=== PATIENT | male | born 1950 | race Caucasian/White ===

== ENCOUNTER 2022-09-14 00:36 | Inpatient (IN) | payer MEDICARE, OTHER ==
[~2022-09-14] VITALS: Ht 177.8 cm; Wt 80.4 kg
[2022-09-14] MEDS ORDERED: ASPIRIN 81 MG CHEWABLE TABLET PO ONE (00:45)
[2022-09-14] MEDS ORDERED: ENOXAPARIN 100 MG/1 ML (LOVENOX) SYR SC ONE (00:45)
[2022-09-14] MEDS ORDERED: dilTIAZem DRIP PRE-MIX 125 ML IV SCH (00:45)
[2022-09-14] MEDS ORDERED: NS IV 1000 ML 1,000 ML ONE ×2 (00:51→13:33)
[2022-09-14 00:53] LABS: BASOPHILS % (AUTO) 0 % (0-10); EOSINOPHILS % (AUTO) 0 % (0-10); HEMATOCRIT 49 % (40-54); HEMOGLOBIN 17.2 g/dL (13.3-17.7); LYMPHOCYTES # (AUTO) 1.6 10^3/uL (1.0-4.0); LYMPHOCYTES % (AUTO) 12 % (12-44); MEAN CORPUSCULAR HEMOGLOBIN 34 pg (25-34); MEAN CORPUSCULAR HGB CONC 35 g/dL (32-36); MEAN CORPUSCULAR VOLUME 95 fL (80-99); MEAN PLATELET VOLUME 10.2 fL (9.0-12.2); MONOCYTES # (AUTO) 1.7 10^3/uL (0.0-1.0); MONOCYTES % (AUTO) 13 % (0-12); NEUTROPHILS # (AUTO) 9.8 10^3/uL (1.8-7.8); NEUTROPHILS % (AUTO) 74 % (42-75); PLATELET COUNT 263 10^3/uL (130-400); WHITE BLOOD COUNT 13.2 10^3/uL (4.3-11.0)
[2022-09-14] MEDS ORDERED: NS IV 1000 ML 1,000 ML IV SCH ×2 (01:00→16:00)
[2022-09-14 01:03] LABS: ALBUMIN 4.3 GM/DL (3.2-4.5); CHLORIDE 89 MMOL/L (98-107); POTASSIUM 4.2 MMOL/L (3.6-5.0)
[2022-09-14 01:04] LABS: AMYLASE 36 U/L (25-125); CALCIUM 9.5 MG/DL (8.5-10.1)
[2022-09-14 01:05] LABS: GLUCOSE 122 MG/DL (70-105); INR 1.5 (0.8-1.4); PROTHROMBIN TIME PATIENT 18.5 SEC (12.2-14.7); TOTAL PROTEIN 7.5 GM/DL (6.4-8.2)
[2022-09-14 01:06] LABS: CARBON DIOXIDE 18 MMOL/L (21-32)
[2022-09-14 01:07] LABS: BILIRUBIN,TOTAL 4.5 MG/DL (0.1-1.0)
[2022-09-14 01:09] LABS: ALKALINE PHOSPHATASE 69 U/L (40-136); CREATININE SERUM 0.98 MG/DL (0.60-1.30); GFR ESTIMATED 82
[2022-09-14 01:10] LABS: BUN/CREATININE RATIO 23
[2022-09-14 01:11] LABS: MAGNESIUM 2.1 MG/DL (1.6-2.4)
[2022-09-14 01:12] LABS: ALANINE AMINOTRANSFERASE 41 U/L (0-55)
[2022-09-14 01:13] LABS: ACETAMINOPHEN < 10 UG/ML (10-30)
[2022-09-14 01:13] LABS: CREATINE KINASE 95 U/L (30-200); LIPASE 27 U/L (8-78)
[2022-09-14 01:14] LABS: AMMONIA 37 UMOL/L (11-32)
[2022-09-14 01:17] LABS: SODIUM 122 MMOL/L (135-145)
[2022-09-14] MEDS ORDERED: FUROSEMIDE 40 MG/4 ML INJ (LASIX) IVP ONE (01:30)
[2022-09-14 01:54] LABS: TSH (THYROID ANALYZER) 2.09 UIU/ML (0.35-4.94)
[2022-09-14 02:25] LABS: CLARITY,URINE CLEAR; COLOR,URINE ORANGE; GLUCOSE, URINE (UA) TRACE (NEGATIVE); KETONES,URINE TRACE (NEGATIVE); LEUKOCYTE ESTERASE ,URINE NEGATIVE (NEGATIVE); NITRITE,URINE NEGATIVE (NEGATIVE); PROTEIN,URINE 2+ (NEGATIVE)
--- NOTE | 2022-09-14 02:27 | ED Cardiac General ---
History of Present Illness General Chief Complaint: Respiratory Problems Stated Complaint: SOA/SWOLLEN ANKLES Nursing Triage Note: PATIENT REPORTS HE IS SOB, STATES X1 WEEK, HX OF AFIB, NONCOMPLIANT WITH MEDICATION. STATES IS SUPPOSE TO TAKE A HTN MED AND HASNT SINCE COVID. PATIENT STATES SWELLING ALAN LEGS ON GOING FOR ONE MONTH. Source: patient History of Present Illness Date Seen by Provider: Sep 14, 2022 Time Seen by Provider: 00:40 Initial Comments PT ARRIVES VIA POV FROM HOME WITH PT C/O SHORTNESS OF BREATH "FOR AWHILE" WORSE X 1 WEEK PT HAS HISTORY OF ATRIAL FIBRILLATION AND HTN, AND IS SUPPOSED TO BE ON UNKNOWN MEDICATIONS. HE HAS NOT BEEN TAKING ANY OF HIS MEDICATIONS FOR A LONG TIME. HE HAS NOT SEEN A DR IN OVER 3 YEARS. HE STATES HE HAD SEEN DR. ESTES AT [facility] IN [place] ( ATOMIC WELDER) IN THE PAST, BUT SINCE COVID PANDEMIC STARTED OVER 3 YEARS AGO, HE QUIT GOING. HE DOES NOT SEE ANY ONE ON REGULAR BASIS FOR PRIMARY CARE EITHER--"JUST GOES TO [facility]-WALK IN WHEN HE NEEDS TO" BUT HAS NOT BEEN THERE IN YEARS EITHER. HE HAS HAD INCREASED SWELLING IN BOTH LEGS FOR AT LEAST A MONTH. NO CHEST PAIN HAD SWEATS "A COUPLE OF TIMES" WHILE AT REST NO DIZZINESS OR SYNCOPE NO NAUSEA/VOMITING PT IS UNAWARE OF RAPID HEART BEAT OTHER THAN "FEELING NERVOUS" SYMPTOMS ARE NO DIFFERENT ARMINDA HAS NOT SOUGHT CARE UNTIL TONIGHT YEARS AGO, HE HAD A CARDIOVERSION AT [facility] BUT PT STATES IT DID NOT WORK AND HE WAS PUT ON MEDICATIONS FOR THE ATRIAL FIBRILLATION. HE ALSO RELATES HE HAD A CARDIAC CATH SEVERAL YEARS AGO AND WAS TOLD HE HAD "BLOCKAGE" BUT NO INTERVENTION, AND WAS TREATED WITH BLOOD THINNERS. HE STATES HE HAS NEVER HAD A HEART ATTACK. HE DENIES ANY LUNG PROBLEMS HE DENIES ANY LIVER, PANCREATIC OR GI PROBLEMS. PT DRINKS AT LEAST 6 BEERS A DAY, BUT HAS NOT HAD THAT MUCH TODAY HE SMOKES < 1 PPD HE DENIES DRUG USE PCP: [facility] [place] ATOMIC WELDER: DR. ESTES AT [facility] Allergies and Home Medications Allergies Coded Allergies: No Known Drug Allergies (Unverified , 09/14/22) Patient Home Medication List Home Medication List Reviewed: Yes Acetaminophen (Tylenol Extra Strength) 500 Mg Tablet, 1,000 MG PO Q8H PRN for PAIN-MILD (1-4), (Reported) Entered as Reported by: RAJ MADRID on 09/14/22 1147 Last Action: Reviewed Review of Systems Review of Systems Constitutional: no symptoms reported; No chills, No diaphoresis, No dizziness, No fever, No malaise, No weakness EENTM: No Symptoms Reported Respiratory: See HPI, Shortness of Air Cardiovascular: See HPI; Denies Chest Pain; Edema, Irregular Heart Rate; Denies Lightheadedness; Palpitations; Denies Syncope Gastrointestinal: No Symptoms Reported; Denies Abdominal Pain, Denies Nausea, Denies Vomiting Genitourinary: No Symptoms Reported Musculoskeletal: see HPI (LEG SWELLING) Skin: no symptoms reported Psychiatric/Neurological: Anxiety; Denies Headache, Denies Numbness, Denies Paresthesia, Denies Tingling, Denies Tremors, Denies Weakness Endocrine: No Symptoms Reported Hematologic/Lymphatic: No Symptoms Reported; Denies Anemia, Denies Blood Clots, Denies Easy Bleeding, Denies Easy Bruising Past [id number]-[id number] Hx Patient Social History Tobacco Use?: Yes Tobacco type used: Cigarettes Smoking Status: Current Everyday Smoker Substance use?: No Alcohol Use?: Yes Alcohol type: Beer Alcohol Frequency: Daily Past Medical History Surgery/Hospitalization HX: HTN, AFIB, Surgeries: Yes Cardiac Respiratory: No Cardiac: Yes Atrial Fibrillation, Hypertension Neurological: No Genitourinary: No Gastrointestinal: Yes (EGD WITH REMOVAL OF FOOD BOLUS AND ESOPHAGEAL DILATION ) Musculoskeletal: No Endocrine: No HEENT: No Cancer: No Psychosocial: No Integumentary: No Blood Disorders: No Family Medical History SOCIAL HISTORY: -SMOKES < 1 PPD' -ETOH--DRINKS AT LEAST A 6 PACK/DAY -DENIES DRUG USE PAST SURGICAL/PROCEDURAL HISTORY: -CARDIOVERSION ATTEMPT / UNSUCCESSFUL SEVERAL YEARS AGO -CARDIAC CATH--NO INTERVENTION. PT STATES HE HAD "BLOCKAGES" BUT TREATED WITH BLOOD THINNERS -EGD WITH REMOVAL OF FOOD BOLUS AND ESOPHAGEAL DILATION. Physical Exam Vital Signs Vital Signs - First Documented 09/14/22 09/14/22 00:47 00:56 Temp 36.0 Pulse 144 Resp 20 B/P (MAP) 167/121 (136) Pulse Ox 98 O2 Delivery Room Air O2 Flow Rate 2.00 Capillary Refill : Less Than 3 Seconds Height, Weight, BMI Height: '" Weight: lbs. oz. kg; 25.00 BMI Method: General Appearance: WD/WN, Mild Distress (MILDLY DYSPNEIC AT REST) HEENT: PERRL/EOMI, Scleral Icterus (L), Scleral Icterus (R) Neck: Normal Inspection, JVD Respiratory: Other (MILD DYSPNEA AT REST. DECREASED AERATION IN BASES. ) Cardiovascular: No Murmur, Normal Peripheral Pulses, Irregularly Irregular, JVD, Tachycardia Gastrointestinal: Non Tender, Soft Extremity: Pedal Edema (3+ EDEMA BILATERALLY WITH CHRONIC VENOUS STASIS CHANGES BILATERALLY. NO CALF TENDERNESS. PULSES +2/4 BILATERALLY. FEET PINK AND WARM ) Neurologic/Psychiatric: Alert, Oriented x3, No Motor/Sensory Deficits, porcelain enamel sprayer II- XII Norm as Tested, Other (SOMEWHAT FLAT AFFECT AND SLIGHTLY SLOW MENTATION) Skin: Warm/Dry; No Diaphoresis, No Ecchymosis; Jaundice; No Petechia, No Rash Focused Exam Lactate Level 09/14/22 00:48: Lactic Acid Level 2.82*H 09/14/22 04:00: Lactic Acid Level 1.04 Lactic Acid Level Laboratory Tests Test 09/14/22 00:48 09/14/22 04:00 Lactic Acid Level 2.82 MMOL/L (0.50-2.00) *H 1.04 MMOL/L (0.50-2.00) Progress/Results/Core Measures Results/Orders Lab Results Laboratory Tests Test 09/14/22 00:45 09/14/22 00:48 09/14/22 02:20 09/14/22 04:00 Range/Units White Blood Count 13.2 H 4.3-11.0 10^3/uL Red Blood Count 5.11 4.30-5.52 10^6/uL Hemoglobin 17.2 13.3-17.7 g/dL Hematocrit 49 40-54 % Mean Corpuscular Volume 95 80-99 fL Mean Corpuscular Hemoglobin 34 25-34 pg Mean Corpuscular Hemoglobin Concent 35 32-36 g/dL Red Cell Distribution Width 13.0 10.0-14.5 % Platelet Count 263 130-400 10^3/uL Mean Platelet Volume 10.2 9.0-12.2 fL Immature Granulocyte % (Auto) 1 % Neutrophils (%) (Auto) 74 42-75 % Lymphocytes (%) (Auto) 12 12-44 % Monocytes (%) (Auto) 13 H 0-12 % Eosinophils (%) (Auto) 0 0-10 % Basophils (%) (Auto) 0 0-10 % Neutrophils # (Auto) 9.8 H 1.8-7.8 10^3/uL Lymphocytes # (Auto) 1.6 1.0-4.0 10^3/uL Monocytes # (Auto) 1.7 H 0.0-1.0 10^3/uL Eosinophils # (Auto) 0.0 0.0-0.3 10^3/uL Basophils # (Auto) 0.0 0.0-0.1 10^3/uL Immature Granulocyte # (Auto) 0.1 0.0-0.1 10^3/uL Prothrombin Time 18.5 H 12.2-14.7 SEC INR Comment 1.5 H 0.8-1.4 Activated Partial Thromboplast Time 48 H 24-35 SEC Sodium Level 122 *L 135-145 MMOL/L Potassium Level 4.2 3.6-5.0 MMOL/L Chloride Level 89 L 98-107 MMOL/L Carbon Dioxide Level 18 L 21-32 MMOL/L Anion Gap 15 H 5-14 MMOL/L Blood Urea Nitrogen 23 H 7-18 MG/DL Creatinine 0.98 0.60-1.30 MG/DL Estimat Glomerular Filtration Rate 82 BUN/Creatinine Ratio 23 Glucose Level 122 H 70-105 MG/DL Calcium Level 9.5 8.5-10.1 MG/DL Corrected Calcium 9.3 8.5-10.1 MG/DL Magnesium Level 2.1 1.6-2.4 MG/DL Total Bilirubin 4.5 H 0.1-1.0 MG/DL Aspartate Amino Transf (AST/SGOT) 49 H 5-34 U/L Alanine Aminotransferase (ALT/SGPT) 41 0-55 U/L Alkaline Phosphatase 69 40-136 U/L Total Creatine Kinase 95 30-200 U/L Creatine Kinase MB 7.0 *H <6.6 NG/ML Myoglobin 130.6 H 10.0-92.0 NG/ML Troponin I < 0.028 <0.028 NG/ML B-Type Natriuretic Peptide 1877.9 H <100.0 PG/ML Total Protein 7.5 6.4-8.2 GM/DL Albumin 4.3 3.2-4.5 GM/DL Amylase Level 36 25-125 U/L Lipase 27 8-78 U/L TSH Barton Testing 2.09 0.35-4.94 UIU/ML Serum Alcohol < 10 <10 MG/DL Hepatitis A IgM Antibody Non-Reactive Non-Reactive Hepatitis B Surface Antigen Non-Reactive Non-Reactive Hepatitis B Core IgM Antibody Non-Reactive Non-Reactive Hepatitis C Antibody Non-Reactive Non-Reactive Influenza Type A (RT-PCR) Not Detected Not Detecte Influenza Type B (RT-PCR) Not Detected Not Detecte SARS-CoV-2 RNA (RT-PCR) Not Detected Not Detecte Lactic Acid Level 2.82 *H 1.04 0.50-2.00 MMOL/L Ammonia 37 H 11-32 UMOL/L Acetaminophen Level < 10 L 10-30 UG/ML Urine Color ORANGE Urine Clarity CLEAR Urine pH 6.0 5-9 Urine Specific Sutton >=1.030 1.016-1.022 Urine Protein 2+ H NEGATIVE Urine Glucose (UA) TRACE H NEGATIVE Urine Ketones TRACE H NEGATIVE Urine Nitrite NEGATIVE NEGATIVE Urine Bilirubin 1+ H NEGATIVE Urine Urobilinogen 1.0 < = 1.0 MG/DL Urine Leukocyte Esterase NEGATIVE NEGATIVE Urine RBC (Auto) NEGATIVE NEGATIVE Urine RBC RARE /HPF Urine WBC 0-2 /HPF Urine Squamous Epithelial Cells 0-2 /HPF Urine Crystals PRESENT H /LPF Urine Amorphous Sediment FEW CHACHO URATES H /LPF Urine Bacteria TRACE /HPF Urine Casts PRESENT /LPF Urine Hyaline Casts 5-10 H /LPF Urine Mucus SMALL H /LPF Urine Culture Indicated NO Urine Opiates Screen NEGATIVE NEGATIVE Urine Oxycodone Screen NEGATIVE NEGATIVE Urine Methadone Screen NEGATIVE NEGATIVE Urine Propoxyphene Screen NEGATIVE NEGATIVE Urine Barbiturates Screen NEGATIVE NEGATIVE Ur Tricyclic Antidepressants Screen NEGATIVE NEGATIVE Urine Phencyclidine Screen NEGATIVE NEGATIVE Urine Amphetamines Screen NEGATIVE NEGATIVE Urine Methamphetamines Screen NEGATIVE NEGATIVE Urine Benzodiazepines Screen POSITIVE H NEGATIVE Urine Cocaine Screen NEGATIVE NEGATIVE Urine Cannabinoids Screen NEGATIVE NEGATIVE My Orders Orders - LAUREANO FRANKLIN DO Ed Iv/Invasive Line Start (09/14/22 00:40) Ekg Tracing (09/14/22 00:40) O2 (09/14/22 00:40) Monitor-Rhythm Ecg Trace Only (09/14/22 00:40) Bnp Sandoval (09/14/22 00:40) Cbc With Automated Diff (09/14/22 00:40) Comprehensive Metabolic Panel (09/14/22 00:40) Creatine Kinase (09/14/22 00:40) Creatine Kinase Mb (09/14/22 00:40) Magnesium (09/14/22 00:40) Protime With Inr (09/14/22 00:40) Partial Thromboplastin Time (09/14/22 00:40) Ua Culture If Indicated (09/14/22 00:40) Myoglobin Serum (09/14/22 00:40) Troponin I Sandoval (09/14/22 00:40) Chest 1 View, Ap/Pa Only (09/14/22 00:40) Covid 19 Inhouse Test (09/14/22 00:40) Influenza A And B By Pcr (09/14/22 00:40) Aspirin Chewable Tablet (Baby Aspirin Ch (09/14/22 00:45) Enoxaparin Injection (Lovenox Injection) (09/14/22 00:45) Diltiazem Injection (Cardizem Injection) (09/14/22 00:45) Diltiazem Drip Pre-Mix (Cardizem Drip Pr (09/14/22 00:45) Alcohol (09/14/22 00:42) Amylase (09/14/22 00:42) Drug Screen Stat (Urine) (09/14/22 00:42) Lipase (09/14/22 00:42) Thyroid Analyzer (09/14/22 00:42) Acetaminophen (09/14/22 00:51) Ammonia (09/14/22 00:51) Hepatitis Panel Acute (09/14/22 00:51) Lactic Acid Analyzer (09/14/22 00:51) Ed Iv/Invasive Line Start (09/14/22 00:51) Ns Iv 1000 Ml (Sodium Chloride 0.9%) (09/14/22 01:00) Ns Iv 1000 Ml (Sodium Chloride 0.9%) (09/14/22 00:51) Ekg Tracing (09/14/22 00:58) Furosemide Injection (Lasix Injection) (09/14/22 01:30) Medications Given in ED Vital Signs/I&O 09/14/22 09/14/22 09/14/22 09/14/22 00:47 00:51 00:52 00:56 Temp 36.0 Pulse 144 148 150 Resp 20 B/P (MAP) 167/121 (136) 177/121 Pulse Ox 98 97 O2 Delivery Room Air Nasal Cannula O2 Flow Rate 2.00 09/14/22 07:01 Pulse 90 Resp 16 B/P (MAP) 135/94 (108) Pulse Ox 94 O2 Delivery Nasal Cannula O2 Flow Rate 2.00 Blood Pressure Mean: 139 Progress Progress Note : Progress Note VITALS ON ARRIVAL: TEMP 36.0, HR 140'S-150'S, BP 167/121 AND 177/121, RR 20'S, O2 SAT 97% ON ROOM AIR GIVEN: -CARDIZEM BOLUS AND PLACED ON DRIP -ASPIRIN -LOVENOX -LASIX HEART RATE DOWN TO LESS THAN 100, AND BP DOWN O2 SATS REMAIN IN UPPER 90'S. PT IS LESS DYSPNEIC AND STATES HE FEELS BETTER, AND FEELS "LESS ANXIOUS" AND NO LONGER FEELS SHORT OF BREATH. LABS: -CBC WITH WBC 13.2, NORMAL HGB AND PLT -CMP WITH NA 122, K 4.2, CO2 18, ANION GAP 15, BUN 23, CR 0.93, GLU 122, MG 2.1, BILI 4.5, AST 49, ALT 41, ALK PHOS 65 -AMYLASE/LIPASE NORMAL -LACTIC ACID 2.82 -CK 95, CK MB 7, MYOGLOBIN 126 -TROPONIN NEGATIVE, BNP 1877.9 -TSH NORMAL -PT/PTT/INR 18.5/48/1.5 -UA WITH 2+ PROTEIN, TRACE GLU, TRACE KET, 1+ BILI. -ETOH NEG -UDS + FOR BENZO'S -COVID/FLU NEGATIVE EKG ON ARRIVAL SHOWS AFIB/RVR CXR SHOWS CHF, PENDING RADIOLOGIST REVIEW NO DETERIORATION IN PT'S CONDITION DURING ER STAY. VITALS REMAIN STABLE AND PT IS ASYMPTOMATIC PT HAS HAD APPROXIMATELY 1800 ML URINE OUTPUT AT THIS TIME. REVIEWED ALL TEST RESULTS, NEED FOR ADMIT AND PT AGREES TO PLAN OF CARE. NO PRIOR VISITS HERE. Initial ECG Impression Date: Sep 14, 2022 Initial ECG Impression Time: 00:46 Initial ECG Rate: 141 Initial ECG Rhythm: A Fib/Flutter Initial ECG Intervals SD --N/A QRS 125 QT/QTC 320/402 Initial ECG Impression: Nonspecific Changes, Atrial Fibrillation w/RVR Initial ECG Comparisson: No Previous ECG Available Comment INTERPRETED BY ME EKG : EKG Time: 00:58 Rate: 91 Rhythm: A Fib/Flutter Intervals SD - N/A QRS 130 QT/QTC 409/457 ECG Impression: Nonspecific Changes Comment STILL WITH ATRIAL FIBRILLATION BUT RATE IS LOWER. INTERPRETED BY ME Diagnostic Imaging Comments CXR--CHF, PENDING RADIOLOGIST REVIEW Reviewed: Reviewed by Me Critical Care Note Critical Care Start Time: 00:40 Total Time (minutes) 30 Progress PT BOARDED IN ER FOR THE REMAINDER OF THE NIGHT, DUE TO NO ICU BEDS AVAILABLE UNTIL AFTER 0700 PT REMAINS IN ATRIAL FIBRILLATION BUT RATE REMAINS LESS THAN 100, AND BP IS STABLE. REMAINS ON CARDIZEM DRIP Departure Communication (Admissions) 0145--SPOKE WITH DR MARIN, HOSPITALIST FOR [facility]. ACCEPTS PT FOR ADMIT. WILL CONSULT CARDIOLOGY. WILL BE BOARDING PT IN ER UNTIL ICU BED IS AVAILABLE AFTER 0700 [id number]--MESSAGE LEFT ON DR. ARELLANO'S CELL Impression Primary Impression: Atrial fibrillation with rapid ventricular response Additional Impressions: HTN (hypertension) CHF (congestive heart failure) Alcoholism ELEVATED BILIRUBIN WITH JAUNDICE Hyponatremia Lactic acidosis Mild renal insufficiency Non-compliance Bilateral leg edema Disposition: ADMITTED INPATIENT Condition: Improved Admissions Decision to Admit Reason: Admit from ER (General) Decision to Admit/Date: Sep 14, 2022 Time/Decision to Admit Time: 01:45 LAUREANO FRANKLIN DO Sep 14, 2022 02:27
[2022-09-14 02:40] LABS: BACTERIA,URINE TRACE /HPF; WBC,URINE 0-2 /HPF
[2022-09-14 02:41] LABS: AMORPHOUS SEDIMENT,UR FEW AMOR URATES /LPF; BILIRUBIN,URINE 1+ (NEGATIVE); SQUAMOUS EPITHELIAL CELL,UR 0-2 /HPF
[2022-09-14 02:42] LABS: RBC,URINE RARE /HPF
[2022-09-14 02:55] LABS: AMPHETAMINE SCREEN, URINE NEGATIVE (NEGATIVE); BARBITURATE SCREEN URINE NEGATIVE (NEGATIVE); BENZODIAZEPINES SCREEN URINE POSITIVE (NEGATIVE); CANNABINOID SCREEN, URINE NEGATIVE (NEGATIVE); COCAINE SCREEN URINE NEGATIVE (NEGATIVE); METHADONE STAT NEGATIVE (NEGATIVE); OPIATE SCREEN URINE NEGATIVE (NEGATIVE); OXYCODONE STAT NEGATIVE (NEGATIVE); PROPOXYPHENE STAT NEGATIVE (NEGATIVE); TRICYCLIC ANTIDEPRESSANTS SCRE NEGATIVE (NEGATIVE)
--- NOTE | 2022-09-14 07:07 | Diagnostic Imaging Report ---
EXAMINATION: Chest 1 view HISTORY: Dyspnea. COMPARISON: None available. FINDINGS: There is cardiomegaly with central pulmonary vascular congestion. Interstitial opacities are seen throughout the lungs. Small pleural effusions are seen. No pneumothorax. IMPRESSION: 1. Cardiomegaly with findings suggestive of pulmonary edema. Dictated by: Dictated on workstation # [id number]
[2022-09-14 07:58] VITALS: BP 148/94
[2022-09-14] MEDS ORDERED: dilTIAZem DRIP 125 MG/125 ML DRIP IV SCH (08:15)
[2022-09-14] MEDS ORDERED: D5 NS + KCL 20 MEQ/L 1,000 ML 1,000 ML IV SCH (08:15)
[2022-09-14] MEDS ORDERED: ONDANSETRON 4 MG/2 ML (SDV) Z0FRAN IV PRN (08:30)
[2022-09-14] MEDS ORDERED: LORazepam INJ 2 MG/ML (ATIVAN) VIAL IM/IV PRN (08:30)
[2022-09-14] MEDS ORDERED: D5 1/2 NS 1,000 ML IV 1,000 ML IV PRN (08:30)
[2022-09-14] MEDS ORDERED: SENNA W/DOCUSATE (SENOKOT S) TABLET PO PRN (08:30)
[2022-09-14] MEDS ORDERED: ONDANSETRON 4 MG/2 ML (SDV) Z0FRAN IVP PRN (08:30)
[2022-09-14] MEDS ORDERED: LORazepam 1 MG (ATIVAN) TAB PO PRN (08:30)
[2022-09-14] MEDS ORDERED: ANTACID SUSP 30 ML UDC (MYLANTA) PO PRN (08:30)
[2022-09-14] MEDS ORDERED: 1/2 NS IV SOLUTION 1000 ML 1,000 ML IV PRN (08:30)
[2022-09-14] MEDS ORDERED: LORazepam INJ 2 MG/ML (ATIVAN) VIAL IV PRN (08:30)
[2022-09-14] MEDS ORDERED: ONDANSETRON 4 MG (ZOFRAN) ORAL DISSOLVE TAB SL PRN (08:30)
--- NOTE | 2022-09-14 08:48 | Diagnostic Imaging Report ---
EXAMINATION: Chest 1 view HISTORY: History of heart failure. Shortness of breath. COMPARISON: Chest radiograph performed earlier the same date. FINDINGS: Stable cardiomegaly and central pulmonary vascular congestion with interstitial edema. Increased small bilateral pleural effusions. No pneumothorax. IMPRESSION: 1. Stable cardiomegaly and interstitial edema with increasing small bilateral pleural effusions. Dictated by: Dictated on workstation # [id number]
[2022-09-14] MEDS ORDERED: THIAMINE INJECTION 100 MG, FOLIC ACID INJECTION 1 MG, MAGNESIUM SULFATE 2 GM, VITAMIN M... IV SCH ×5 (09:00)
[2022-09-14] MEDS ORDERED: PANTOPRAZOLE 40 MG (PROTONIX) VIAL IV SCH (09:00)
[2022-09-14] MEDS ORDERED: PIPERACILLIN SODIUM/TAZOBACTAM 4.5 GM in NS (IVPB) 100 ML 100 ML IV NR (09:30)
--- NOTE | 2022-09-14 09:45 | Diagnostic Imaging Report ---
INDICATION: History of heart failure. Elevated bilirubin. PROCEDURE: Ultrasound abdomen complete. TECHNIQUE: Multiple real-time grayscale images were obtained of the abdomen in various projections. COMPARISON: None. FINDINGS: The liver is normal in size, shape and echotexture. There are no focal lesions. No intra or extrahepatic biliary dilatation is present. The common bile duct is nondilated and measures 0.5 cm. There is no evidence of cholelithiasis or pericholecystic fluid. There is mild gallbladder wall thickening measuring 0.3 cm. Sonographic Garcia's sign is negative. The visualized portions of the head and proximal body of the pancreas are within normal limits. The distal body and tail are not well visualized due to overlying bowel gas. Both kidneys are normal in size and echogenicity. The cortical thickness and the corticomedullary differentiation is well maintained. The right kidney measures 10.4 cm. The left kidney measures 11.0 cm. There is no evidence of calculi, focal mass or hydronephrosis. The spleen is not enlarged. The visualized upper aorta and IVC are normal in course and caliber. There is no ascites in the upper abdomen. Bilateral pleural effusions are noted. IMPRESSION: 1. Mild gallbladder wall thickening without evidence of cholelithiasis or acute cholecystitis. 2. Bilateral pleural effusions. Dictated by: Dictated on workstation # [id number]
[2022-09-14 10:45] LABS: BASOPHILS % (AUTO) 0 % (0-10); EOSINOPHILS % (AUTO) 0 % (0-10); HEMATOCRIT 42 % (40-54); HEMOGLOBIN 15.1 g/dL (13.3-17.7); LYMPHOCYTES # (AUTO) 1.2 10^3/uL (1.0-4.0); LYMPHOCYTES % (AUTO) 11 % (12-44); MEAN CORPUSCULAR HEMOGLOBIN 34 pg (25-34); MEAN CORPUSCULAR HGB CONC 36 g/dL (32-36); MEAN CORPUSCULAR VOLUME 94 fL (80-99); MONOCYTES # (AUTO) 1.8 10^3/uL (0.0-1.0); MONOCYTES % (AUTO) 16 % (0-12); NEUTROPHILS # (AUTO) 8.4 10^3/uL (1.8-7.8); NEUTROPHILS % (AUTO) 73 % (42-75); PLATELET COUNT 213 10^3/uL (130-400); WHITE BLOOD COUNT 11.5 10^3/uL (4.3-11.0)
[2022-09-14 10:52] LABS: ALBUMIN 3.9 GM/DL (3.2-4.5)
[2022-09-14 10:53] LABS: POTASSIUM 3.3 MMOL/L (3.6-5.0)
[2022-09-14 10:54] LABS: CALCIUM 8.7 MG/DL (8.5-10.1)
[2022-09-14 10:55] LABS: TOTAL PROTEIN 6.8 GM/DL (6.4-8.2)
[2022-09-14 10:57] LABS: BILIRUBIN,TOTAL 4.6 MG/DL (0.1-1.0)
[2022-09-14 10:58] LABS: CREATININE SERUM 0.77 MG/DL (0.60-1.30)
--- NOTE | 2022-09-14 11:23 | Consultation-Cardiology ---
HPI-Cardiology Cardiology Consultation Date of Consultation 09/14/22 Date of Admission Time Seen by Provider: 08:40 Indication: Shortness of breath HPI 72-year-old gentleman with extensive cardiac history, was seen by Dr. Dickson in the past done by Dr. Michele, no recent cardiology follow-up, did not see a doctor for 3 years, was not taking his medication, still drinking daily. Started to have worsening shortness of breath and peripheral edema. Came into the emergency room for evaluation he denied any chest pain. No syncope or near syncopal episodes. No claudications. Noted to have elevated BNP. Home Medications & Allergies Allergies: Coded Allergies: No Known Drug Allergies (Unverified , 09/14/22) Home Medication List Reviewed: Yes Not sure about his medication and did not take his medications at home ZLG-[id number]-Dwntlm Hx Patient Social History Marital Status: Employed/Student: retired Smoking Status: Current Everyday Smoker Alcohol Use?: Yes Past Medical History Discussed below Family Medical History Significant Family History: No Pertinent Family Hx Review of Systems-General Review of Systems Constitutional: no symptoms reported; No chills, No diaphoresis, No dizziness, No fever; malaise; No weakness EENTM: see HPI, no symptoms reported Respiratory: see HPI; No cough; dyspnea on exertion; No hemoptysis; orthopnea; No phlegm; short of breath; No stridor, No wheezing, No other Cardiovascular: see HPI; No chest pain; edema; No Hx of Intervention; palpitations; No syncope, No vascular heart diseas, No other Gastrointestinal: no symptoms reported, see HPI Genitourinary: no symptoms reported, see HPI Musculoskeletal: see HPI (LEG SWELLING) Skin: no symptoms reported Psychiatric/Neurological: Anxiety; Denies Headache, Denies Numbness, Denies Paresthesia, Denies Tingling, Denies Tremors, Denies Weakness Reviewed Test Results Reviewed Test Results Lab Laboratory Tests Test 09/14/22 00:45 09/14/22 00:48 09/14/22 02:20 09/14/22 04:00 Range/Units White Blood Count 13.2 H 4.3-11.0 10^3/uL Red Blood Count 5.11 4.30-5.52 10^6/uL Hemoglobin 17.2 13.3-17.7 g/dL Hematocrit 49 40-54 % Mean Corpuscular Volume 95 80-99 fL Mean Corpuscular Hemoglobin 34 25-34 pg Mean Corpuscular Hemoglobin Concent 35 32-36 g/dL Red Cell Distribution Width 13.0 10.0-14.5 % Platelet Count 263 130-400 10^3/uL Mean Platelet Volume 10.2 9.0-12.2 fL Immature Granulocyte % (Auto) 1 % Neutrophils (%) (Auto) 74 42-75 % Lymphocytes (%) (Auto) 12 12-44 % Monocytes (%) (Auto) 13 H 0-12 % Eosinophils (%) (Auto) 0 0-10 % Basophils (%) (Auto) 0 0-10 % Neutrophils # (Auto) 9.8 H 1.8-7.8 10^3/uL Lymphocytes # (Auto) 1.6 1.0-4.0 10^3/uL Monocytes # (Auto) 1.7 H 0.0-1.0 10^3/uL Eosinophils # (Auto) 0.0 0.0-0.3 10^3/uL Basophils # (Auto) 0.0 0.0-0.1 10^3/uL Immature Granulocyte # (Auto) 0.1 0.0-0.1 10^3/uL Prothrombin Time 18.5 H 12.2-14.7 SEC INR Comment 1.5 H 0.8-1.4 Activated Partial Thromboplast Time 48 H 24-35 SEC Sodium Level 122 *L 135-145 MMOL/L Potassium Level 4.2 3.6-5.0 MMOL/L Chloride Level 89 L 98-107 MMOL/L Carbon Dioxide Level 18 L 21-32 MMOL/L Anion Gap 15 H 5-14 MMOL/L Blood Urea Nitrogen 23 H 7-18 MG/DL Creatinine 0.98 0.60-1.30 MG/DL Estimat Glomerular Filtration Rate 82 BUN/Creatinine Ratio 23 Glucose Level 122 H 70-105 MG/DL Calcium Level 9.5 8.5-10.1 MG/DL Corrected Calcium 9.3 8.5-10.1 MG/DL Magnesium Level 2.1 1.6-2.4 MG/DL Total Bilirubin 4.5 H 0.1-1.0 MG/DL Aspartate Amino Transf (AST/SGOT) 49 H 5-34 U/L Alanine Aminotransferase (ALT/SGPT) 41 0-55 U/L Alkaline Phosphatase 69 40-136 U/L Total Creatine Kinase 95 30-200 U/L Creatine Kinase MB 7.0 *H <6.6 NG/ML Myoglobin 130.6 H 10.0-92.0 NG/ML Troponin I < 0.028 <0.028 NG/ML B-Type Natriuretic Peptide 1877.9 H <100.0 PG/ML Total Protein 7.5 6.4-8.2 GM/DL Albumin 4.3 3.2-4.5 GM/DL Amylase Level 36 25-125 U/L Lipase 27 8-78 U/L TSH [place] Testing 2.09 0.35-4.94 UIU/ML Serum Alcohol < 10 <10 MG/DL Influenza Type A (RT-PCR) Not Detected Not Detecte Influenza Type B (RT-PCR) Not Detected Not Detecte SARS-CoV-2 RNA (RT-PCR) Not Detected Not Detecte Lactic Acid Level 2.82 *H 1.04 0.50-2.00 MMOL/L Ammonia 37 H 11-32 UMOL/L Acetaminophen Level < 10 L 10-30 UG/ML Urine Color ORANGE Urine Clarity CLEAR Urine pH 6.0 5-9 Urine Specific [place] >=1.030 1.016-1.022 Urine Protein 2+ H NEGATIVE Urine Glucose (UA) TRACE H NEGATIVE Urine Ketones TRACE H NEGATIVE Urine Nitrite NEGATIVE NEGATIVE Urine Bilirubin 1+ H NEGATIVE Urine Urobilinogen 1.0 < = 1.0 MG/DL Urine Leukocyte Esterase NEGATIVE NEGATIVE Urine RBC (Auto) NEGATIVE NEGATIVE Urine RBC RARE /HPF Urine WBC 0-2 /HPF Urine Squamous Epithelial Cells 0-2 /HPF Urine Crystals PRESENT H /LPF Urine Amorphous Sediment FEW CHACHO URATES H /LPF Urine Bacteria TRACE /HPF Urine Casts PRESENT /LPF Urine Hyaline Casts 5-10 H /LPF Urine Mucus SMALL H /LPF Urine Culture Indicated NO Urine Opiates Screen NEGATIVE NEGATIVE Urine Oxycodone Screen NEGATIVE NEGATIVE Urine Methadone Screen NEGATIVE NEGATIVE Urine Propoxyphene Screen NEGATIVE NEGATIVE Urine Barbiturates Screen NEGATIVE NEGATIVE Ur Tricyclic Antidepressants Screen NEGATIVE NEGATIVE Urine Phencyclidine Screen NEGATIVE NEGATIVE Urine Amphetamines Screen NEGATIVE NEGATIVE Urine Methamphetamines Screen NEGATIVE NEGATIVE Urine Benzodiazepines Screen POSITIVE H NEGATIVE Urine Cocaine Screen NEGATIVE NEGATIVE Urine Cannabinoids Screen NEGATIVE NEGATIVE Test 09/14/22 08:34 Range/Units White Blood Count 11.5 H 4.3-11.0 10^3/uL Red Blood Count 4.50 4.30-5.52 10^6/uL Hemoglobin 15.1 13.3-17.7 g/dL Hematocrit 42 40-54 % Mean Corpuscular Volume 94 80-99 fL Mean Corpuscular Hemoglobin 34 25-34 pg Mean Corpuscular Hemoglobin Concent 36 32-36 g/dL Red Cell Distribution Width 13.1 10.0-14.5 % Platelet Count 213 130-400 10^3/uL Mean Platelet Volume 11.0 9.0-12.2 fL Immature Granulocyte % (Auto) 0 % Neutrophils (%) (Auto) 73 42-75 % Lymphocytes (%) (Auto) 11 L 12-44 % Monocytes (%) (Auto) 16 H 0-12 % Eosinophils (%) (Auto) 0 0-10 % Basophils (%) (Auto) 0 0-10 % Neutrophils # (Auto) 8.4 H 1.8-7.8 10^3/uL Lymphocytes # (Auto) 1.2 1.0-4.0 10^3/uL Monocytes # (Auto) 1.8 H 0.0-1.0 10^3/uL Eosinophils # (Auto) 0.0 0.0-0.3 10^3/uL Basophils # (Auto) 0.0 0.0-0.1 10^3/uL Immature Granulocyte # (Auto) 0.1 0.0-0.1 10^3/uL Sodium Level 126 L 135-145 MMOL/L Potassium Level 3.3 L 3.6-5.0 MMOL/L Chloride Level 89 L 98-107 MMOL/L Carbon Dioxide Level 21 21-32 MMOL/L Anion Gap 16 H 5-14 MMOL/L Blood Urea Nitrogen 19 H 7-18 MG/DL Creatinine 0.77 0.60-1.30 MG/DL Estimat Glomerular Filtration Rate 96 BUN/Creatinine Ratio 25 Glucose Level 104 70-105 MG/DL Calcium Level 8.7 8.5-10.1 MG/DL Corrected Calcium 8.8 8.5-10.1 MG/DL Total Bilirubin 4.6 H 0.1-1.0 MG/DL Aspartate Amino Transf (AST/SGOT) 33 5-34 U/L Alanine Aminotransferase (ALT/SGPT) 37 0-55 U/L Alkaline Phosphatase 63 40-136 U/L Troponin I < 0.028 <0.028 NG/ML Total Protein 6.8 6.4-8.2 GM/DL Albumin 3.9 3.2-4.5 GM/DL Physical Exam Physical Exam Vital Signs Vital Signs - First Documented 09/14/22 09/14/22 00:47 00:56 Temp 36.0 Pulse 144 Resp 20 B/P (MAP) 167/121 (136) Pulse Ox 98 O2 Delivery Room Air O2 Flow Rate 2.00 Capillary Refill : Less Than 3 Seconds Height, Weight, BMI Height: '" Weight: lbs. oz. kg; 25.43 BMI Method: General Appearance: WD/WN, Mild Distress (MILDLY DYSPNEIC AT REST) HEENT: PERRL/EOMI, Scleral Icterus (L), Scleral Icterus (R) Neck: Normal Inspection, JVD Respiratory: Crackles, Rhonci, Other (MILD DYSPNEA AT REST. DECREASED AERATION IN BASES. ) Cardiovascular: No Murmur, Normal Peripheral Pulses, Irregularly Irregular, JVD, Tachycardia Gastrointestinal: Non Tender, Soft Extremity: Pedal Edema (3+ EDEMA BILATERALLY WITH CHRONIC VENOUS STASIS CHANGES BILATERALLY. NO CALF TENDERNESS. PULSES +2/4 BILATERALLY. FEET PINK AND WARM ) Neurologic/Psychiatric: Alert, Oriented x3, No Motor/Sensory Deficits, switchboard receptionist II- XII Norm as Tested, Other (SOMEWHAT FLAT AFFECT AND SLIGHTLY SLOW MENTATION) Skin: Warm/Dry; No Diaphoresis, No Ecchymosis; Jaundice; No Petechia, No Rash A/P-Cardiology Admission Diagnosis Congestive heart failure Shortness of breath Peripheral edema Atrial fibrillation Hypertension Assessment/Plan Congestive heart failure, acute decompensated left ventricular systolic dysfunction I will evaluate 2D echo Started on Lasix and Lovenox Monitor tolerance and response 2D echo done on September 14, 2022 showing dilated left ventricle with severe LVH, ejection fraction 35 to 40%, moderate to severe mitral regurgitation, aortic valve sclerosis, mild to moderate aortic regurgitation, PA pressure 30 to 35 mmHg I am planning to proceed with cardiac catheterization Peripheral edema, shortness of breath secondary to heart failure Started on diuretics History of atrial fibrillation, currently permanent atrial fibrillation Maintained on oral anticoagulation, questionable noncompliant with medication. Hypertension, restart home medication monitor blood pressure No known history of coronary artery disease, cardiac enzymes were negative Continue to monitor Try to obtain copy of the records. Alcoholism, educated on avoiding alcohol products. Electrolytes imbalance. Hyponatremia, hypokalemia Managed by medical team. JESE ARELLANO MD Sep 14, 2022 11:23
--- NOTE | 2022-09-14 11:40 | Tele-ICU Progress Note ---
Subjective Date Seen by a Provider: Sep 14, 2022 Time Seen by a Provider: 11:24 Subjective/Events-last exam (Tele-ICU Physician, consultation as per request of PCP) Service provided via interactive audio and video telecommunications E-CARE system to a patient admitted to ICU bed in [facility]. Available chart/ vitals / labs / Images reviewed H&P is from ER notes Patient's information available about PMH, Shx, Fhx allergy reviewed inEMR. ROS as per chart and RN report Hospital course: 73 y/o M with hx of HTN, Afibr and CHF who prsented to ED with c/o palitpations found to be in Afib with RVR currently requiring cardizem gtt. A/P Afib with RVR: now with improvement in HR -Will cont cardizem gtt and attempt transition to PO. -Cont Aspirin, heparin -Cardiology following -Hx of unsuccessful cardioversion attempt in past. CHF: Stable edema with bilateral pleural effusions on CXR -Will await TTE, avoid aggressive IVF -Lasix Lines : periph , (Central Line Necessity Reviewed) [place]: Nutrition: HH diet VTE Prophylaxis: brii 1`30 bid Stress Ulcer Prophylaxis:- Plans in collaboration with bedside consultants and IM MDs. Discussed with RN to reach out if any questions or concerns A total of 20 minutes of critical care time was devoted to this patient today, required to treat and/or prevent further deterioration of critical care condition (as above ) Sepsis Event Evaluation Height, Weight, BMI Height: '" Weight: lbs. oz. kg; 25.43 BMI Method: Focused Exam Lactate Level 09/14/22 00:48: Lactic Acid Level 2.82*H 09/14/22 04:00: Lactic Acid Level 1.04 Exam Exam Patient acknowledged, consented, and participated in this virtual visit which was conducted using real time audio/video Vital Signs Date Time Temp Pulse Resp B/P (MAP) Pulse Ox O2 Delivery O2 Flow Rate FiO2 09/14/22 10:00 82 20 142/96 (111) 98 Room Air 09/14/22 09:30 86 27 145/91 (109) 98 Room Air 09/14/22 09:15 91 23 138/107 (117) 99 Room Air 09/14/22 09:00 87 18 135/80 (98) 94 Room Air 09/14/22 08:45 101 26 138/103 (115) 97 Room Air 09/14/22 08:40 98 Room Air 09/14/22 08:30 98 31 145/104 (118) 98 Room Air 09/14/22 08:30 98 31 145/104 (118) 98 Room Air 09/14/22 08:15 91 30 150/98 (115) 99 Room Air 09/14/22 08:15 91 30 150/98 (115) 99 Room Air 09/14/22 08:14 90 09/14/22 08:12 36.2 96 24 138/98 (111) 100 Room Air 09/14/22 08:00 92 30 138/98 (111) 99 Room Air 09/14/22 07:58 36.0 98 18 148/94 100 Nasal Cannula 2.00 09/14/22 07:01 90 16 135/94 (108) 94 Nasal Cannula 2.00 09/14/22 00:56 97 Nasal Cannula 2.00 09/14/22 00:52 150 09/14/22 00:51 148 177/121 09/14/22 00:47 36.0 144 20 167/121 (136) 98 Room Air I & O 09/14/22 06:59 Intake Total 1000 ml Output Total 1800 ml Balance -800 ml Height & Weight Height: '" Weight: lbs. oz. kg; 25.43 BMI Method: General Appearance: WD/WN, Mild Distress (MILDLY DYSPNEIC AT REST) HEENT: PERRL/EOMI, Scleral Icterus (L), Scleral Icterus (R) Neck: Normal Inspection, JVD Respiratory: Other (MILD DYSPNEA AT REST. DECREASED AERATION IN BASES. ) Cardiovascular: No Murmur, Normal Peripheral Pulses, Irregularly Irregular, JVD, Tachycardia Capillary Refill: Less Than 3 Seconds Extremity: Pedal Edema (3+ EDEMA BILATERALLY WITH CHRONIC VENOUS STASIS CHANGES BILATERALLY. NO CALF TENDERNESS. PULSES +2/4 BILATERALLY. FEET PINK AND WARM ) Neurologic/Psychiatric: Alert, Oriented x3, No Motor/Sensory Deficits, truck technician II- XII Norm as Tested, Other (SOMEWHAT FLAT AFFECT AND SLIGHTLY SLOW MENTATION) Skin: Warm/Dry; No Diaphoresis, No Ecchymosis; Jaundice; No Petechia, No Rash Results Lab Laboratory Tests 09/14/22 00:45 09/14/22 08:34 Assessment/Plan Assessment/Plan . CARLEE ROTH MD Sep 14, 2022 11:40
[2022-09-14] MEDS ORDERED: PANTOPRAZOLE 40 MG (PROTONIX) TAB PO SCH (11:45)
[2022-09-14] MEDS ORDERED: ACET-2267 PO (11:47)
[2022-09-14] MEDS ORDERED: ENOXAPARIN 100 MG/1 ML (LOVENOX) SYR SC SCH (13:00)
[2022-09-14] MEDS ORDERED: LIDOCAINE 1% INJ 20 ML VIAL ONE (13:33)
[2022-09-14] MEDS ORDERED: HEParin (CATH LAB) 2,000 ML IV ONE (13:33)
--- NOTE | 2022-09-14 13:40 | Cardiac Procedure Note-CS/ASA ---
Pre-Procedure Note Pre-Op Procedure Note Date of Available H&P: Sep 14, 2022 Date H&P Reviewed: Sep 14, 2022 Time H&P Reviewed: 13:40 History & Physical: H&P Reviewed, Patient Examed, No changes noted Pre-Operative Diagnosis: CHF Moderate Sedation PreProcedure Time 13:40 ASA Score 3 Airway Lungs Heart ASA score ASA 1: a normal healthy patient ASA 2: a patient with a mild systemic disease (mid diabetes, controlled hypertension, obesity ASA 3: a patient with a severe systemic disease that limits activity (angina, COPD, prior Myocardial infarction) ASA 4: a patient with an incapacitating disease that is a constant threat to life (CHF, renal failure) ASA 5: a moribund patient not expected to survive 24 hrs. (ruptured aneurysm) ASA 6: a declared brain- patient whose organs are being harvested. For emergent operations, add the letter E after the classification Mallampati Classification Grade 3 Sedation Plan Analgesia, Amnesia, Plan communicated to team members, Discussed options with patient/fam, Discussed risks with patient/fam The patient is an appropriate candidate to undergo the planned procedure, sedation, and anesthesia. The patient immediately re-assessed prior to indication. JESE ARELLANO MD Sep 14, 2022 13:40
--- NOTE | 2022-09-14 13:43 | History & Physical-Hospitalist ---
LAUREL CURRIE 09/14/22 1343: History of Present Illness HPI/Chief Complaint Stephan Hernandez is a 72yo M with past medical history of HTN, persistent atrial fibrillation, and HFrEF who presented to the ED on 09/14 with complaints of shortness of breath, peripheral edema, and cough that have been present for several months but worsened over the last week. He previously followed with a vice president medical affairs from [facility] but has not seen him in roughly 3 years. Reports he has been in consistently taking his blood pressure meds, diuretics, and anticaogulation for about 1 year. He denies any chest pain and does not feel any palpitations despite being in afib. In the ED he was tachycardic in the 140s so he was placed on a cardizem drip with appropriate response in HR. His BNP was elevated and a CXR showed some bl pleural effusions.He was given lasix. He r eports both of his legs are swollen but are not painful. He denies abdominal distention or pain. He has a history of unsuccessful cardioversions as well as cardiac catheterization with no stents placed according to patient and family. He also endorses drinking a 6 pack of beer per day and he is a current smoker. He denies any anxiety, shaking, sweating, tremors, or hallucinations since admission. Source: patient, family Exam Limitations: no limitations Date Seen 09/14/22 Time Seen by a Provider: 10:40 Attending Physician Edna,Local Physician PCP Admitting Physician: Herminia Milner DO Attending Physician: Herminia Milner DO Referring Physician Date of Admission Sep 14, 2022 at 07:44 Home Medications & Allergies Home Medications Reviewed patient Home Medication Reconciliation performed by pharmacy medication reconciliations compliance field technician and/or nursing. Patients Allergies have been reviewed. Allergies Allergies Coded Allergies No Known Drug Allergies (Unverified09/14/22) Past Afxxvta-Lebydl-Rhbgys Hx Patient Social History Marrital Status: Employed/Student: retired Tobacco Use?: Yes Tobacco type used: Cigarettes Smoking Status: Current Everyday Smoker Use of E-Cig and/or Vaping dev: No Substance use?: No Alcohol Use?: Yes Alcohol type: Beer, Hard Liquor, Wine Alcohol Frequency: Daily Additional Alcohol Comments: 6 -10 beers (starts drinking at 11am per family) Pt feels they are or have been: No Current Status Advance Directives: Yes Communicates: Verbally Primary Language: Polish Preferred Spoken Language: Polish Is interpretation needed?: No Implanted or Applied Medical D: None Past Medical History Surgeries: Cardiac (hx of cardiac cath and cardioversion) Atrial Fibrillation, Chronic Edema/Swelling, Hypertension, Irregular Heartbeat Blood Disorders: No Family Medical History No Pertinent Family Hx SOCIAL HISTORY: -SMOKES < 1 PPD' -ETOH--DRINKS AT LEAST A 6 PACK/DAY -DENIES DRUG USE PAST SURGICAL/PROCEDURAL HISTORY: -CARDIOVERSION ATTEMPT / UNSUCCESSFUL SEVERAL YEARS AGO -CARDIAC CATH--NO INTERVENTION. PT STATES HE HAD "BLOCKAGES" BUT TREATED WITH BLOOD THINNERS -EGD WITH REMOVAL OF FOOD BOLUS AND ESOPHAGEAL DILATION. Review of Systems Constitutional: No chills, No diaphoresis, No fever EENTM: No hearing loss, No vision loss Respiratory: cough, dyspnea on exertion, short of breath; No wheezing Cardiovascular: No chest pain; edema; No palpitations Gastrointestinal: No abdominal pain, No nausea, No vomiting Genitourinary: No dysuria, No hematuria Psychiatric/Neurological: Denies Headache, Denies Pre-Existing Deficit, Denies Tremors Physical Exam Physical Exam Vital Signs Vital Signs - First Documented 09/14/22 09/14/22 00:47 00:56 Temp 36.0 Pulse 144 Resp 20 B/P (MAP) 167/121 (136) Pulse Ox 98 O2 Delivery Room Air O2 Flow Rate 2.00 Capillary Refill : Less Than 3 Seconds Height, Weight, BMI Height: '" Weight: lbs. oz. kg; 25.43 BMI Method: General Appearance: No Apparent Distress, WD/WN HEENT: PERRL/EOMI, Moist Mucous Membranes, Scleral Icterus (L), Scleral Icterus (R) Neck: Supple; No JVD Respiratory: No Accessory Muscle Use, No Respiratory Distress, Crackles (faint bilaterally) Cardiovascular: Normal Peripheral Pulses, Irregularly Irregular Gastrointestinal: Non Tender, Soft; No Distended Rectal: Deferred Extremity: Non Tender, Swelling (2+ edema bilaterally up to knees) Neurologic/Psychiatric: Alert, Oriented x3, Normal Mood/Affect Skin: Warm/Dry, Jaundice Results Results/Procedures Labs Laboratory Tests 09/14/22 00:45 09/14/22 08:34 Patient resulted labs reviewed. Imaging: Reviewed Imaging Films, Reviewed Imaging Report Assessment/Plan Admission Diagnosis Atrial fibrillation with rapid ventricular response Acute on chronic HFrEF Hyponatremia Hyperbilirubinemia Admission Status: Inpatient Order (span 2 midnights) Reason for Inpatient Admission: Afib RVR Acute on chronic CHF Assessment and Plan Atrial fibrillation with rapid ventricular response Hx of persistent afib No follow up with PCP or Cardiology for some time, noncompliant with meds Cardiology consulted appreciate recs Rate in the 140s in ED, now controlled in the 80s with cardizem drip Continue drip, transition to oral diltiazem per cards Antiocoagulated with Lovenox 1mg/kg q12hr Echo showed LV hypertrophy with EF of 35-40%, severely dilated L atrium, and bilateral pleural effusions Acute on chronic HFrEF Peripheral edema Bilateral pleural effusions Echo revealed borderline reduced EF as above, cards planning cardiac cath BNP elevated at 1877 Continue lasix 40mg BID Fluid restriction Hyponatremia 122 Continue to monitor CMP, cannot aggressively correct with IV fluids due to CHF Likely secondary to fluid overload and alcohol Hyperbilirubinemia Elevated PT, INR, aPTT Mild AST elevation Total bili elevated at 4.5, consider fractionated bili Hepatitis panel pending Abdominal us revealed mild gallbladder wall thickening at 3mm with bilateral pleural effusions again noted, normal size and architecture of liver Jaundiced with scleral icterus Consult general surgery Alcohol abuse CIWA protocol Getting thiamine, folic acid, mag, D5 1/2 NS, K replacement monitor for signs of withdrawal, benzodiazepine prn Diet- NPO in case of need for procedure Dvt ppx- lovenox at anticoagulation dose of 1mg/kg q12hr due to afib Code status- full HERMINIA MILNER DO 09/15/22 0437: Assessment/Plan Admission Diagnosis Maintain alcohol withdrawal protocol Cardizem drip Cardiology consultation OAC Alcoholic hepatitis-supportive care Fluid restriction for hyponatremia Admission Status: Inpatient Order (span 2 midnights) Reason for Inpatient Admission: alcohol withdrawal with hyponatremia and AF with non-compliance Supervisory-Addendum Brief Verification & Attestation Participated in pt care: history, MDM, physical Personally performed: exam, history, MDM, supervision of care Care discussed with: Medical Student Procedures: n/a Results interpretation: Verified all documentation Verification and Attestation of Medical Student E/M Service A medical student performed and documented this service in my presence. I reviewed and verified all information documented by the medical student and made modifications to such information, when appropriate. I personally performed the physical exam and medical decision making. Herminia Milner, Sep 15, 2022,04:36 LAUREL CURRIE Sep 14, 2022 13:43 HERMINIA MILNER DO Sep 15, 2022 04:37
[2022-09-14 14:34] LABS: HEPATITIS C ANTIBODY C Non-Reactive (Non-Reactive)
[2022-09-14] MEDS ORDERED: HEParin 1000 UNIT/ML (10ML VIAL) FOR BOLUS ONE (15:25)
[2022-09-14] MEDS ORDERED: NITRO DRIP 25000 MCG/D5W 250 ML IV ONE (15:25)
[2022-09-14] MEDS ORDERED: MIDAZOLAM 5 MG/5 ML (VERSED) VIAL ONE (15:25)
[2022-09-14] MEDS ORDERED: fentaNYL INJ 100 MCG/2 ML AMP ONE (15:25)
[2022-09-14] MEDS ORDERED: VERAPAMIL 5 MG/2 ML (CALAN) VIAL IV ONE (15:25)
[2022-09-14] MEDS ORDERED: PIPERACILLIN SODIUM/TAZOBACTAM 4.5 GM in NS (IVPB) 100 ML 100 ML IV SCH (15:30)
[2022-09-14] MEDS ORDERED: FLUMAZENIL (ROMAZICON) 0.1 MG/ML 10 ML VIAL IV ONE (15:57)
[2022-09-14] MEDS ORDERED: NALOXONE 0.4 MG/ML 1 ML (NARCAN) VIAL ONE (16:01)
--- NOTE | 2022-09-14 16:02 | Cardiac Cath Report ---
Cardiac Cath Report Physician (s)/Cleaning Team Member (s) Physician JESE ARELLANO MD Pre-Procedure Diagnosis Pre-Procedure Diagnosis: CHF Post-Procedure Note Procedure Start Date: Sep 14, 2022 Name of Procedure: Left heart catheterization Findings/Procedure Note PROCEDURE NOTE: 72-year-old gentleman admitted with shortness of breath, had elevation in troponin, significant deterioration in the left ventricular function, cardiac catheterization was advised. After explaining the procedure to the patient, all pros and cons were explained, all questions were answered. The patient signed the consent and then he was placed in the cardiac catheterization laboratory. Groin was prepped in SL fashion local anesthesia was used. Sheath placed in the right femoral artery, [place] catheter was advanced to the left ventricular cavity, pressure was me asured, pullback LV to aorta was done, engaged the right and left coronary system, multiple views were obtained. At the end of the procedure the sheath was removed. Vascular band was used FINDINGS: Hemodynamics LV 160/34, end-diastolic pressure of 34 Aorta 135/80 mean of 103 ANATOMY: Left Main is free of obstructive disease Left Anterior Descending has mild disease nonobstructive disease Left Circumflex is large artery with mild disease nonobstructive disease Right Coronary Artery is a large dominant artery with no obstructive disease LV Gram was not done, pressure was measured CONCLUSION: Dominant right coronary artery with mild disease nonobstructive disease Elevated left ventricular end-diastolic pressure Hospital course: Postcardiac catheterization patient was noted on the table to have slurred speech and right-sided weakness, I assumed that he developed an acute CVA. Patient was taken directly to the CT scan which showed no active bleed, CT angiogram was done and showed M2 occlusion on the left side. I contacted neurology who advised transfer. Arrangement for air transportation were made but it was reported that it was going to take about an hour. Patient received Lovenox at 1300. He does not qualify for tPA. While waiting for air transport patient showed signs of improvement in recovery, his NIH score at 1700 was 5. At the time of this report at 1730 patient had very minimal slurred speech, significant regaining of his motor and speech. Had nose coordination and muscle strength returned to near normal. I discussed the management with Dr. Adams at , we will continue with arrangement for transfer although he might not require invasive thrombectomy. He will be monitored and managed at . Final diagnosis: Acute CVA Congestive heart failure, acute left ventricular systolic dysfunction, nonischemic cardiomyopathy Coronary artery disease Chronic persistent atrial fibrillation Hypertension Alcoholism Anesthesia Type: Conscious Sedation Estimated blood loss (mL): 10 ml Contrast Amount: 50 ml Total Radiation Dose: 631 mGy Post-Procedure Diagnosis Post-operative diagnosis: Acute CVA Congestive heart failure, acute left ventricular systolic dysfunction, nonischemic cardiomyopathy Coronary artery disease Chronic persistent atrial fibrillation Hypertension Alcoholism JESE ARELLANO MD Sep 14, 2022 16:02
[2022-09-14] MEDS ORDERED: ALTEPLASE 100 MG/VIAL (ACTIVASE) IV ONE ×2 (16:15→16:30)
[2022-09-14] MEDS ORDERED: NS IV ONE ×2 (16:15)
[2022-09-14] MEDS ORDERED: TENECTEPLASE IV ONE ×2 (16:15)
--- NOTE | 2022-09-14 16:42 | Diagnostic Imaging Report ---
PROCEDURE: CT head wo r/o stroke. TECHNIQUE: Multiple contiguous axial images were obtained through the brain without the use of intravenous contrast. Auto Exposure Controls were utilized during the CT exam to meet ALARA standards for radiation dose reduction. INDICATION: Aphasia, right-sided neglect. COMPARISON: None. FINDINGS: Ventricles and cortical sulci are prominent, likely from generalized parenchymal volume loss. No acute intracranial hemorrhage is seen. There is no CT evidence of acute territorial ischemia. The vessels appear mildly dense, which is consistent with patient's history of recent heart catheterization. The calvarium is intact. Paranasal sinuses are clear. IMPRESSION: 1. No acute intracranial hemorrhage or CT evidence of acute territorial ischemia. CT angiogram has been performed. Please refer to separate report. 2. Contrast in the vasculature, consistent with recent heart catheterization. 3. Generalized parenchymal volume loss. Findings discussed with Sebastien Armijo M.D., by Dr. Javier, on 09/14/2022, 4:25 p.m. Dictated by: Dictated on workstation # [id number]
--- NOTE | 2022-09-14 16:46 | Consultation - Surgery ---
History of Present Illness History of Present Illness Patient Consulted On(milagros/time) 09/14/22 15:41 Date Seen by Provider: Sep 14, 2022 Time Seen by Provider: 15:36 Reason for Visit: Shortness of breath History of Present Illness Consult requested by Dr. Milner for mild gallbladder wall thickening. Patient is a 72 year old male who states he came to ED due to increasing shortne ss of breath over last couple days. Having lower extremity swelling as well. Got to where he was to uncomfortable so came to be further evaluated. He states he is not having any abdominal complaints. Never had issues with tolerating diet. He has been yellow in color, but more now than before states his family. Patient does drink at least 6 beers a day and also wine and moons radha. Had u/s showin. Mild gallbladder wall thickening without evidence of cholelithiasis or acute cholecystitis. 2. Bilateral pleural effusions Allergies and Home Medications Allergies Coded Allergies: No Known Drug Allergies (Unverified , 09/14/22) Patient Home Medication List Home Medication List Reviewed: Yes Acetaminophen (Tylenol Extra Strength) 500 Mg Tablet, 1,000 MG PO Q8H PRN for PAIN-MILD (1-4), (Reported) Entered as Reported by: RAJ MADRID on 09/14/22 1147 Last Action: Reviewed Past [id number]-[id number] Hx Patient Social History Smoking Status: Current Everyday Smoker Alcohol Use?: Yes Surgeries History of Surgeries: Yes Surgeries: Cardiac (hx of cardiac cath and cardioversion) Respiratory History of Respiratory Disorde: No Cardiovascular History of Cardiac Disorders: Yes Cardiac Disorders: Atrial Fibrillation, Chronic Edema/Swelling, Hypertension, Irregular Heartbeat Neurological History of Neurological Disord: No Genitourinary History of Genitourinary Disor: No Gastrointestinal History of Gastrointestinal Di: Yes (EGD WITH REMOVAL OF FOOD BOLUS AND E SOPHAGEAL DILATION ) Musculoskeletal History of Musculoskeletal Dis: No Endocrine History of Endocrine Disorders: No HEENT History of HEENT Disorders: No Cancer History of Cancer: No Psychosocial History of Psychiatric Problem: No Integumentary History of Skin or Integumenta: No Blood Transfusions History of Blood Disorders: No Reviewed Nursing Assessment Reviewed/Agree w Nursing PMH: Yes Family Medical History Significant Family History: No Pertinent Family Hx Review of Systems-General Constitutional: No chills, No diaphoresis EENTM: No blurred vision, No double vision Respiratory: No cough; dyspnea on exertion, short of breath Cardiovascular: No chest pain, No palpitations Gastrointestinal: No abdominal pain, No nausea, No vomiting Genitourinary: No decreased output, No discharge Musculoskeletal: No back pain, No joint pain Skin: No change in color, No change in hair/nails Psychiatric/Neurological: Denies Anxiety, Denies Depressed, Denies Emotional Problems All Other Systems Reviewed Negative Unless Noted: Yes (Negative excepted noted.) Physical Exam-General Problems Physical Exam Vital Signs Vital Signs - First Documented 09/14/22 09/14/22 00:47 00:56 Temp 36.0 Pulse 144 Resp 20 B/P (MAP) 167/121 (136) Pulse Ox 98 O2 Delivery Room Air O2 Flow Rate 2.00 Capillary Refill : Less Than 3 Seconds General Appearance: WD/WN, no apparent distress HEENT: normal ENT inspection, scleral icterus (R), scleral icterus (L) Neck: non-tender, supple Respiratory: chest non-tender, no respiratory distress, no accessory muscle use Cardiovascular: no JVD, irregularly irregular Gastrointestinal: non tender, soft Rectal: deferred Back: normal inspection, no CVA tenderness Extremities: non-tender, normal inspection Neurologic/Psychiatric: alert, normal mood/affect, oriented x 3 Skin: warm/dry, jaundice Lymphatic: no adenopathy Data Review Labs Laboratory Tests 09/14/22 00:45: White Blood Count 13.2H, Red Blood Count 5.11, Hemoglobin 17.2, Hematocrit 49, Mean Corpuscular Volume 95, Mean Corpuscular Hemoglobin 34, Mean Corpuscular Hemoglobin Concent 35, Red Cell Distribution Width 13.0, Platelet Count 263, Mean Platelet Volume 10.2, Immature Granulocyte % (Auto) 1, Neutrophils (%) (Auto) 74, Lymphocytes (%) (Auto) 12, Monocytes (%) (Auto) 13H, Eosinophils (%) (Auto) 0, Basophils (%) (Auto) 0, Neutrophils # (Auto) 9.8H, Lymphocytes # (Auto) 1.6, Monocytes # (Auto) 1.7H, Eosinophils # (Auto) 0.0, Basophils # (Aut o) 0.0, Immature Granulocyte # (Auto) 0.1, Prothrombin Time 18.5H, INR Comment 1.5H, Activated Partial Thromboplast Time 48H, Sodium Level 122*L, Potassium Level 4.2, Chloride Level 89L, Carbon Dioxide Level 18L, Anion Gap 15H, Blood Urea Nitrogen 23H, Creatinine 0.98, Estimat Glomerular Filtration Rate 82, BUN/Creatinine Ratio 23, Glucose Level 122H, Calcium Level 9.5, Corrected Calcium 9.3, Magnesium Level 2.1, Total Bilirubin 4.5H, Aspartate Amino Transf (AST/SGOT) 49H, Alanine Aminotransferase (ALT/SGPT) 41, Alkaline Phosphatase 69, Total Creatine Kinase 95, Creatine Kinase MB 7.0*H, Myoglobin 130.6H, Troponin I < 0.028, B-Type Natriuretic Peptide 1877.9H, Total Protein 7.5, Albumin 4.3, Amylase Level 36, Lipase 27, TSH [place] Testing 2.09, Serum Alcohol < 10, Hepatitis A IgM Antibody Non-Reactive, Hepatitis B Surface Antigen Non-Reactive, Hepatitis B Core IgM Antibody Non-Reactive, Hepatitis C Antibody Non-Reactive, Influenza Type A (RT-PCR) Not Detected, Influenza Type B (RT-PCR) Not Detected, SARS-CoV-2 RNA (RT-PCR) Not Detected 09/14/22 00:48: Lactic Acid Level 2.82*H, Ammonia 37H, Acetaminophen Level < 10L 09/14/22 02:20: Urine Color ORANGE, Urine Clarity CLEAR, Urine pH 6.0, Urine Specific [place] >=1.030, Urine Protein 2+H, Urine Glucose (UA) TRACEH, Urine Ketones TRACEH, Urine Nitrite NEGATIVE, Urine Bilirubin 1+H, Urine Urobilinogen 1.0, Urine Leukocyte Esterase NEGATIVE, Urine RBC (Auto) NEGATIVE, Urine RBC RARE, Urine WBC 0-2, Urine Squamous Epithelial Cells 0-2, Urine Crystals PRESENTH, Urine Amorphous Sediment FEW CHACHO URATESH, Urine Bacteria TRACE, Urine Casts PRESENT, Urine Hyaline Casts 5-10H, Urine Mucus SMALLH, Urine Culture Indicated NO, Urine Opiates Screen NEGATIVE, Urine Oxycodone Screen NEGATIVE, Urine Methadone Screen NEGATIVE, Urine Propoxyphene Screen NEGATIVE, Urine Barbiturates Screen NEGATIVE, Ur Tricyclic Antidepressants Screen NEGATIVE, Urine Phencyclidine Screen NEGATIVE, Urine Amphetamines Screen NEGATIVE, Urine Methamphetamines Screen NEGATIVE, Urine Benzodiazepines Screen POSITIVEH, Urine Cocaine Screen NEGATIVE, Urine Cannabinoids Screen NEGATIVE 09/14/22 04:00: Lactic Acid Level 1.04 09/14/22 08:34: White Blood Count 11.5H, Red Blood Count 4.50, Hemoglobin 15.1, Hematocrit 42, Mean Corpuscular Volume 94, Mean Corpuscular Hemoglobin 34, Mean Corpuscular Hemoglobin Concent 36, Red Cell Distribution Width 13.1, Platelet Count 213, Mean Platelet Volume 11.0, Immature Granulocyte % (Auto) 0, Neutrophils (%) (Auto) 73, Lymphocytes (%) (Auto) 11L, Monocytes (%) (Auto) 16H, Eosinophils (%) (Auto) 0, Basophils (%) (Auto) 0, Neutrophils # (Auto) 8.4H, Lymphocytes # (Auto) 1.2, Monocytes # (Auto) 1.8H, Eosinophils # (Auto) 0.0, Basophils # (Auto) 0.0, Immature Granulocyte # (Auto) 0.1, Sodium Level 126L, Potassium Level 3.3L, Chloride Level 89L, Carbon Dioxide Level 21, Anion Gap 16H, Blood Urea Nitrogen 19H, Creatinine 0.77, Estimat Glomerular Filtration Rate 96, BUN/Creatinine Ratio 25, Glucose Level 104, Calcium Level 8.7, Corrected Calcium 8.8, Total Bilirubin 4.6H, Aspartate Amino Transf (AST/SGOT) 33, Alanine Aminotransferase (ALT/SGPT) 37, Alkaline Phosphatase 63, Troponin I < 0.028, Total Protein 6.8, Albumin 3.9 Assessment/Plan Assessment/Plan Assessment/Plan jaundice gallbladder wall thickening shortness of breath alcohol hepatitis patient no abdominal complaints. His gallbladder in 3mm in thickness no other features suggestive of cholecystitis. I do not think it needs removed. Advised cessation of alcohol use. [facility] Repeat labs in JAIRO Souza DO Sep 14, 2022 16:46
--- NOTE | 2022-09-14 16:55 | Diagnostic Imaging Report ---
PROCEDURE: CT angiography of the head and CT angiography of the neck with and without contrast. TECHNIQUE: Contiguous noncontrast images were obtained from the skull base through the vertex. After intravenous contrast administration, helical CT angiography of the neck was performed. Source data was reformatted into 3D MIP projections. Delayed post contrast acquisition was also obtained. Auto Exposure Controls were utilized during the CT exam to meet ALARA standards for radiation dose reduction. INDICATION: Aphasia, right-sided neglect. COMPARISON: None. FINDINGS: There is a large right and moderate left pleural effusion. There appears to be edema in the lungs. There is atherosclerosis at the aortic arch. There is motion artifact on multiple images, causing suboptimal evaluation. The right common carotid artery has mild atherosclerosis without stenosis seen. The right ICA has atherosclerosis and there is significant motion artifact present, but no high-grade stenosis is appreciated. The left ICA has atherosclerosis and motion artifact as well but no high-grade stenosis is appreciated. The left common carotid artery appears to be patent. The left vertebral artery appears dominant. There is atherosclerosis in the vertebral arteries. There appears to be a small intimal flap or tiny dissection in the left vertebral artery at the C2-C3 level (image 249 series 2). The anterior communicating arteries are patent. The anterior cerebral arteries appear normal. The right MCA appears normal. The left MCA demonstrates a focal occlusion which appears to be in the M2 segment (image 365 to 368 of series 2). The posterior communicating arteries are robust on the right and faintly seen on the left. The posterior cerebral arteries appear patent. The superior cerebellar arteries appear normal. The basilar artery appears normal. No enhancing lesions are seen in the brain. Soft tissues demonstrate no acute abnormality. There are advanced degenerative changes in the lower cervical spine. Multiple dental caries are noted. IMPRESSION: 1. 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 This was discussed with JESE ARELLANO MD by Dr. Javier, on 09/14/2022 4:30 PM. 2. Age-indeterminate tiny intimal dissection flap of the left vertebral artery. No occlusion or stenosis. 3. Bilateral pleural effusions, right greater than left, with mild pulmonary edema. Dictated by: Dictated on workstation # [id number]
[2022-09-14] MEDS ORDERED: FUROSEMIDE 40 MG/4 ML INJ (LASIX) IVP SCH (17:00)
--- NOTE | 2022-09-14 20:03 | Discharge Summary ---
Discharge Summary Hospital Course Was the Problem List Reviewed?: Yes Problems/Dx: (1) Acute CVA (cerebrovascular accident) Hospital Course Date of Admission: Sep 14, 2022 at 07:44 Admission Diagnosis : Family Physician/Provider: No,Local Physician Date of Discharge: 09/14/22 Discharge Diagnosis: [ ] Hospital Course: Short course after he was admitted for AF RVR and hyponatremia with alcohol withdrawal to ICU and Cardiology consulted. Patient remained stable. Cardizem drip maintained. Acute volume overload managed with meds. Vitamin supplementation maintained to prevent Wernickes. Patient underwent cardiac cath and sustained an acute CVA with thrombus noted so was contacted and they accepted transfer and after multiple attempts at securing flight transfer he was transferred to but to note his CVA signs had nearly resolved completed by time of transfer. Labs and Pending Lab Test: Laboratory Tests 09/14/22 00:45: White Blood Count 13.2H, Red Blood Count 5.11, Hemoglobin 17.2, Hematocrit 49, Mean Corpuscular Volume 95, Mean Corpuscular Hemoglobin 34, Mean Corpuscular Hemoglobin Concent 35, Red Cell Distribution Width 13.0, Platelet Count 263, Mean Platelet Volume 10.2, Immature Granulocyte % (Auto) 1, Neutrophils (%) (Auto) 74, Lymphocytes (%) (Auto) 12, Monocytes (%) (Auto) 13H, Eosinophils (%) (Auto) 0, Basophils (%) (Auto) 0, Neutrophils # (Auto) 9.8H, Lymphocytes # (Auto) 1.6, Monocytes # (Auto) 1.7H, Eosinophils # (Auto) 0.0, Basophils # (Auto) 0.0, Immature Granulocyte # (Auto) 0.1, Prothrombin Time 18.5H, INR Comment 1.5H, Activated Partial Thromboplast Time 48H, Sodium Level 122*L, Potassium Level 4.2, Chloride Level 89L, Carbon Dioxide Level 18L, Anion Gap 15H , Blood Urea Nitrogen 23H, Creatinine 0.98, Estimat Glomerular Filtration Rate 82, BUN/Creatinine Ratio 23, Glucose Level 122H, Calcium Level 9.5, Corrected Calcium 9.3, Magnesium Level 2.1, Total Bilirubin 4.5H, Aspartate Amino Transf (AST/SGOT) 49H, Alanine Aminotransferase (ALT/SGPT) 41, Alkaline Phosphatase 69, Total Creatine Kinase 95, Creatine Kinase MB 7.0*H, Myoglobin 130.6H, Troponin I < 0.028, B-Type Natriuretic Peptide 1877.9H, Total Protein 7.5, Albumin 4.3, Amylase Level 36, Lipase 27, TSH [place] Testing 2.09, Serum Alcohol < 10, Hepatitis A IgM Antibody Non-Reactive, Hepatitis B Surface Antigen Non-Reactive, Hepatitis B Core IgM Antibody Non-Reactive, Hepatitis C Antibody Non-Reactive, Influenza Type A (RT-PCR) Not Detected, Influenza Type B (RT-PCR) Not Detected, SARS-CoV-2 RNA (RT-PCR) Not Detected 09/14/22 00:48: Lactic Acid Level 2.82*H, Ammonia 37H, Acetaminophen Level < 10L 09/14/22 02:20: Urine Color ORANGE, Urine Clarity CLEAR, Urine pH 6.0, Urine Specific [place] >=1.030, Urine Protein 2+H, Urine Glucose (UA) TRACEH, Urine Ketones TRACEH, Urine Nitrite NEGATIVE, Urine Bilirubin 1+H, Urine Urobilinogen 1.0, Urine Leukocyte Esterase NEGATIVE, Urine RBC (Auto) NEGATIVE, Urine RBC RARE, Urine WBC 0-2, Urine Squamous Epithelial Cells 0-2, Urine Crystals PRESENTH, Urine Amorphous Sediment FEW CHACHO URATESH, Urine Bacteria TRACE, Urine Casts PRESENT, Urine Hyaline Casts 5-10H, Urine Mucus SMALLH, Urine Culture Indicated NO, Urine Opiates Screen NEGATIVE, Urine Oxycodone Screen NEGATIVE, Urine Methadone Screen NEGATIVE, Urine Propoxyphene Screen NEGATIVE, Urine Barbiturates Screen NEGATIVE, Ur Tricyclic Antidepressants Screen NEGATIVE, Urine Phencyclidine Screen NEGATIVE, Urine Amphetamines Screen NEGATIVE, Urine Methamphetamines Screen NEGATIVE, Urine Benzodiazepines Screen POSITIVEH, Urine Cocaine Screen NEGATIVE, Urine Cannabinoids Screen NEGATIVE 09/14/22 04:00: Lactic Acid Level 1.04 09/14/22 08:34: White Blood Count 11.5H, Red Blood Count 4.50, Hemoglobin 15.1, Hematocrit 42, Mean Corpuscular Volume 94, Mean Corpuscular Hemoglobin 34, Mean Corpuscular Hemoglobin Concent 36, Red Cell Distribution Width 13.1, Platelet Count 213, Mean Platelet Volume 11.0, Immature Granulocyte % (Auto) 0, Neutrophils (%) (Auto) 73, Lymphocytes (%) (Auto) 11L, Monocytes (%) (Auto) 16H, Eosinophils (%) (Auto) 0, Basophils (%) (Auto) 0, Neutrophils # (Auto) 8.4H, Lymphocytes # (Auto) 1.2, Monocytes # (Auto) 1.8H, Eosinophils # (Auto) 0.0, Basophils # (Auto) 0.0, Immature Granulocyte # (Auto) 0.1, Sodium Level 126L, Potassium Level 3.3L, Chloride Level 89L, Carbon Dioxide Level 21, Anion Gap 16H, Blood Urea Nitrogen 19H, Creatinine 0.77, Estimat Glomerular Filtration Rate 96, BUN/Creatinine Ratio 25, Glucose Level 104, Calcium Level 8.7, Corrected Calcium 8.8, Total Bilirubin 4.6H, Aspartate Amino Transf (AST/SGOT) 33, Alanine Aminotransferase (ALT/SGPT) 37, Alkaline Phosphatase 63, Troponin I < 0.028, Total Protein 6.8, Albumin 3.9 Home Meds Active Reported Tylenol Extra Strength (Acetaminophen) 500 Mg Tablet 1,000 Mg PO Q8H PRN Assessment/Pt Instructions [facility] to [facility] Discharge Planning: <30 minutes discharge planning Discharge Instructions Discharge Diet: No Restrictions Discharge Physical Examination Vital Signs Vital Signs Date Time Temp Pulse Resp B/P (MAP) Pulse Ox O2 Delivery O2 Flow Rate FiO2 09/14/22 17:45 86 17 154/89 (110) 97 Room Air 09/14/22 11:29 36.2 09/14/22 07:58 2.00 Allergies: Coded Allergies: No Known Drug Allergies (Unverified , 09/14/22) Discharge Summary Date of Admission Sep 14, 2022 at 07:44 Date of Discharge Sep 14, 2022 at 18:26 Admission Diagnosis Atrial fibrillation with rapid ventricular response Acute on chronic HFrEF Hyponatremia Hyperbilirubinemia SIDNEY MARIN DO Sep 14, 2022 20:03
[2022-09-15] MEDS ORDERED: ASPIRIN enteric coated 81MG TABLET PO SCH ×2 (09:00)
== END 2022-09-14 18:26 | disposition short-term general hospital (02) | DRG 286 ==
LOC: ER 00:39 → ICU 07:44
PROVIDERS: ADMIT Internal Medicine; ATTEND Internal Medicine
PROC: 4A023N7 Measurement of Cardiac Sampling and Pressure, Left Heart, Percutaneous Approach (ICD-10-PCS; principal; 2022-09-14)
PROC: B2111ZZ Fluoroscopy of Multiple Coronary Arteries using Low Osmolar Contrast (ICD-10-PCS; 2022-09-14)
DX: I48.19 Other persistent atrial fibrillation (principal); I50.23 Acute on chronic systolic (congestive) heart failure; I63.312 Cerebral infarction due to thrombosis of left middle cerebral artery; F10.239 Alcohol dependence with withdrawal, unspecified; E87.1 Hypo-osmolality and hyponatremia; E87.20 Acidosis, unspecified; I97.820 Postprocedural cerebrovascular infarction following cardiac surgery; G81.91 Hemiplegia, unspecified affecting right dominant side; I11.0 Hypertensive heart disease with heart failure; Z20.822 Contact with and (suspected) exposure to COVID-19; Y90.0 Blood alcohol level of less than 20 mg/100 ml; E87.6 Hypokalemia; K70.10 Alcoholic hepatitis without ascites; R47.81 Slurred speech; R29.705 NIHSS score 5; I42.8 Other cardiomyopathies; K82.9 Disease of gallbladder, unspecified; I25.10 Atherosclerotic heart disease of native coronary artery without angina pectoris; F17.210 Nicotine dependence, cigarettes, uncomplicated; I08.0 Rheumatic disorders of both mitral and aortic valves; N28.9 Disorder of kidney and ureter, unspecified; Z91.199 Patient's noncompliance with other medical treatment and regimen due to unspecified reason; Z79.899 Other long term (current) drug therapy
CPT/HCPCS: 36415; 70450; 70496; 70498; 71045; 76700; 80053; 80074; 80306; 80320; 80329; 81000; 82140; 82150; 82550; 82553; 83605; 83690; 83735; 83874; 83880; 84443; 84484; 85025; 85610; 85730; 87081; 87636; 93005; 93041; 93306; 93458